=== PATIENT | female | born 1990 | race Caucasian/White ===

== ENCOUNTER 2019-07-29 17:18 | Emergency (ER) | payer OTHER ==
[~2019-07-29] VITALS: Ht 157.5 cm; Wt 78.0 kg
[2019-07-29 18:44] VITALS: Ht 157.5 cm; Wt 78.0 kg
[2019-07-29 19:06] LABS: BASOPHIL % 0.5 % (0-2); PLATELET COUNT 200 x10^3mcL (130-400); RED CELL DISTRIBUTION WIDTH 13.3 % (11.5-14.5)
[2019-07-29 19:36] LABS: AST/SGOT 18 U/L (15-37); BILIRUBIN TOTAL 0.9 mg/dL (0.20-1.00); CALCIUM 8.9 mg/dL (8.5-10.1); CARBON DIOXIDE 29.7 mmol/L (21-32); CHLORIDE SERUM 103 mmol/L (98-107); CREATININE SERUM 0.7 mg/dL (0.6-1.0); GFR1 > 60 mL/min; GLUCOSE SERUM 97 mg/dL (74-106); POTASSIUM SERUM 4.6 mmol/L (3.5-5.1); SODIUM SERUM 138 mmol/L (136-145); TOTAL PROTEIN, SERUM 7.6 g/dL (6.4-8.2)
[2019-07-29 19:37] LABS: ALKALINE PHOSPHATASE 65 U/L (46-116); ALT/SGPT 34 U/L (14-59); AMYLASE 46 U/L (25-115); LIPASE 107 IU/L (73-393)
[2019-07-29 20:22] LABS: microscopic required? YES; urine erythrocyte NEGATIVE (NEGATIVE)
[2019-07-29 22:20] VITALS: BP 107/77
== END 2019-07-29 22:10 | disposition home or self-care (01) ==
LOC: ED 17:18
PROVIDERS: Emergency Medicine
DX: K29.70 Gastritis, unspecified, without bleeding (principal)
CPT/HCPCS: 36415; Q0092

== ENCOUNTER 2019-10-08 14:16 | Emergency (ER) | payer OTHER ==
[~2019-10-08] VITALS: Ht 157.5 cm; Wt 73.9 kg
[2019-10-08 14:22] VITALS: Ht 157.5 cm; Wt 73.9 kg
[2019-10-08 16:22] VITALS: BP 109/59
== END 2019-10-08 16:22 | disposition home or self-care (01) ==
LOC: ED 14:16
DX: F45.8 Other somatoform disorders (principal)